=== PATIENT | female | born 1985 | race Two or more races ===

== ENCOUNTER → 2020-06-18 08:31 | Outpatient (BNVA) | payer OTHER, SELFPAY | PROVIDERS: PCP Internal Medicine; Visit Provider Physician Assistant ==

== ENCOUNTER → 2020-07-16 08:10 | Outpatient (BNVA) | payer OTHER, SELFPAY | PROVIDERS: PCP Internal Medicine; Visit Provider Dietitian, Registered ==

== ENCOUNTER → 2020-07-18 08:19 | Outpatient (BNVA) | payer OTHER, SELFPAY | PROVIDERS: PCP Internal Medicine; Visit Provider Dietitian, Registered ==

== ENCOUNTER → 2020-07-29 15:19 | Outpatient (BNVA) | payer OTHER, SELFPAY | PROVIDERS: PCP Internal Medicine; Visit Provider Surgery ==

== ENCOUNTER → 2020-08-15 13:51 | Outpatient (BNVA) | payer OTHER, SELFPAY | PROVIDERS: PCP Internal Medicine; Visit Provider Dietitian, Registered ==

== ENCOUNTER → 2020-08-27 15:50 | Outpatient (BNVA) | payer OTHER, SELFPAY | PROVIDERS: PCP Internal Medicine; Visit Provider Dietitian, Registered | DX: E66.01 Morbid (severe) obesity due to excess calories (principal) | CPT/HCPCS: 97803 ==

== ENCOUNTER 2020-09-05 14:03 | Outpatient (REF) | payer OTHER, SELFPAY ==
[2020-09-06 13:36] LABS: H Pylori Breath Test NOT DETECTED (NOT DETECTED)
== END 2020-09-05 14:04 | disposition home or self-care (01) ==
LOC: HO.LNP 14:03
PROVIDERS: PCP Internal Medicine; Visit Provider Surgery
DX: Z01.818 Encounter for other preprocedural examination (principal); E66.01 Morbid (severe) obesity due to excess calories; Z68.41 Body mass index [BMI] 40.0-44.9, adult; Z71.3 Dietary counseling and surveillance
CPT/HCPCS: 83013

== ENCOUNTER → 2020-09-27 14:13 | Outpatient (BNVA) | payer OTHER, SELFPAY | PROVIDERS: PCP Internal Medicine; Visit Provider Surgery ==

== ENCOUNTER → 2020-10-14 15:16 | Outpatient (BNVA) | payer OTHER, SELFPAY | PROVIDERS: PCP Internal Medicine; Visit Provider Surgery ==

== ENCOUNTER → 2020-11-15 14:13 | Outpatient (BNVA) | payer OTHER, SELFPAY | PROVIDERS: PCP Internal Medicine; Visit Provider Surgery ==

== ENCOUNTER → 2020-12-17 13:37 | Outpatient (BNVA) | payer OTHER, SELFPAY | PROVIDERS: PCP Internal Medicine; Visit Provider Surgery ==

== ENCOUNTER → 2020-12-20 13:43 | Outpatient (BNVA) | payer OTHER, SELFPAY | PROVIDERS: PCP Internal Medicine; Visit Provider Physician Assistant ==

== ENCOUNTER 2020-12-25 08:26 | Inpatient (IN) | payer OTHER, SELFPAY ==
--- NOTE | 2020-12-17 14:42 | ECG_ITS ---
Test Reason : SOB Blood Pressure : / mmHG Vent. Rate : 075 BPM Atrial Rate : 075 BPM P-R Int : 124 ms QRS Dur : 086 ms QT Int : 388 ms P-R-T Axes : -05 014 014 degrees QTc Int : 433 ms Normal sinus rhythm Normal ECG No previous ECGs available Referred By: Charisma Monsalve Electronically Signed By:EARNESTINE RECIO
[2020-12-17 15:16] LABS: MANUAL DIFF FLAG NO
[2020-12-17 15:18] LABS: Basophils Percent Auto 0.4 % (0-2); Eosinophils Absolute Auto 0.1 X10*3/uL (0.0-0.4); Eosinophils Percent Auto 0.5 % (0-4); Hematocrit 32.3 % (37-47); Hemoglobin 9.6 g/dl (12.0-16.0); Imm Gran Abs Auto 0.02 X10*3/uL (0.00-0.03); Imm Gran Pct Auto 0.2 % (0.0-0.4); Lymphocytes Absolute Auto 2.2 X10*3/uL (1.2-4.9); Lymphocytes Percent Auto 23.2 % (20-40); Mean Corpuscular HGB Conc 29.7 g/dl (31.0-35.0); Mean Corpuscular Hemoglobin 20.8 pg (27.0-33.0); Mean Corpuscular Volume 69.9 fL (80-98); Mean Platelet Volume 9.8 fL (9.4-12.3); Monocytes Absolute Auto 0.5 X10*3/uL (0.1-1.2); Monocytes Percent Auto 5.1 % (2-11); Neutrophils Absolute Auto 6.6 X10*3/uL (2.0-8.3); Neutrophils Percent Auto 70.6 % (45-73); Platelet Count 576 X10*3/uL (160-400); Red Blood Count 4.62 X10*6/uL (4.20-5.50); Red Cell Distribution Width 18.9 % (11.0-16.0); White Blood Count 9.3 X10*3/uL (4.8-10.8)
[2020-12-17 15:23] LABS: INTERNATIONAL NORM RATIO 1.1 (0.9-1.1); Prothrombin Time 12.3 SEC (9.9-13.0)
[2020-12-17 15:25] LABS: Partial Thromboplastin Time 35.5 SEC (24.1-38.0)
[2020-12-17 15:34] LABS: Glucose Urine UA NEG (NEG); Leukocyte Esterase Urine NEG (NEG); Nitrite Urine NEG (NEG); Urine Blood 2+ (NEG); Urine Ketones NEG (NEG); Urine Protein NEG (NEG-TRACE)
[2020-12-17 15:35] LABS: Appearance Urine CLEAR; Color Urine YELLOW
[2020-12-17 15:36] LABS: UPreg QC Valid YES; Urine Pregnancy NEGATIVE (NEGATIVE)
[2020-12-17 15:44] LABS: RBC Urine 30-49 /HPF (0); WBC Urine 0-2 /HPF (0-4)
[2020-12-17 15:45] LABS: Squamous Epithelial Cell Urine 1+ /LPF
[2020-12-17 15:59] LABS: Albumin Level 4.5 g/dL (3.5-5.0); Anion Gap 15 (12-20); Blood Urea Nitrogen 13 mg/dL (9-16); Calcium 9.4 mg/dL (8.4-10.2); Carbon Dioxide 23 mmol/L (22-29); Chloride 106 mmol/L (96-108); Estimated Glomerular Filt Rate > 60; Glucose Random 95 mg/dL (60-115); Potassium 4.6 mmol/L (3.3-5.1); Sodium 139 mmol/L (135-145)
[2020-12-18 12:39] VITALS: BMI 37.5
--- NOTE | 2020-12-24 09:34 | HO.ANESPROP2 ---
Documented by User: Keke Watson 12/24/20 09:35 HPI - Anesthesia Eval Consult details Narrative: 35yo F for Gastrectomy Sleeve,EGD,poss diaphragmatic hernia,poss ventral hernia,poss open PMFSH Active Problems Active Problems: All Active Problems (Updated 12/18/20 @ 12:44 by Melodie Mallory) Preoperative examination (Acute) Adjustment disorder, unspecified (Acute) BMI 39.0-39.9,adult (Acute) Obesity (Acute) BMI 37.0-37.9, adult (Acute) Shortness of breath (Acute) Morbid obesity (Acute) BMI 40.0-44.9, adult (Acute) Past Medical History Medical History Back pain BMI 40.0-44.9, adult COVID-19 vaccine administered Family history of reaction to anesthesia Morbid obesity MARY (obstructive sleep apnea) Family History Family History Mother Hypertension Prediabetes Father Heart attack Son Premature baby Daughter Epilepsy Sister No problems noted. Brother No problems noted. Surgical History Surgical History Hx of tubal ligation Social History Social History Household Members: Family Housing: House Are you a primary healthcare corporate account director to a significant other at home: No Do you presently have visiting nurse or other home services: No Alcohol intake: current Alcohol intake frequency: holidays/special occasions only Patient Tobacco Use Status: Never used Tobacco Use of substances other than those prescribed or required for medical reasons: No Have you been hit, kicked, punched, or otherwise hurt by someone within the past year? If so, by whom?: No Are you DNR?: No Advance Directives Information Provided: No Eating poorly because of decreased appetite: No Nutrition Risks: No Nutritional Risk Patient : No FDLMP: 12/16/20 : No Poor oral hygiene: No Meds Allergies Allergy/AdvReac Type Severity Reaction Status Date / Time No Known Allergies Allergy Verified 12/25/20 08:38 Home Medications Medication Instructions Recorded Confirmed Last Taken Type multivitamin 1 tab PO DAILY 12/18/20 12/18/20 Unknown History multivitamin 1 tab PO DAILY 12/18/20 12/18/20 Unknown History Exam Exam Date and Time: December 24, 2020 0934 Height,Weight and Vital Signs: Height 5 ft 6 in Weight 105.506 kg Pertinent Lab Results Pertinent Lab Results: Laboratory Tests 12/17/20 12/17/20 12/17/20 14:50 14:50 14:50 WBC 9.3 RBC 4.62 Hgb 9.6 L Hct 32.3 L MCV 69.9 L MCH 20.8 L MCHC 29.7 L RDW 18.9 H Plt Count 576 H MPV 9.8 Immature Gran % (Auto) 0.2 Neut % (Auto) 70.6 Lymph % (Auto) 23.2 [place] % (Auto) 5.1 Eos % (Auto) 0.5 Baso % (Auto) 0.4 Lymph # (Auto) 2.2 [place] # (Auto) 0.5 Eos # (Auto) 0.1 Baso # (Auto) 0.0 Abs Immat Gran (auto) 0.02 Absolute Neuts (auto) 6.6 Absolute Nucleated RBC 0.000 Nucleated RBC % (auto) 0.0 PT 12.3 INR 1.1 APTT 35.5 Sodium Potassium Chloride Carbon Dioxide Anion Gap BUN Creatinine Estim Creat Clear Calc Estimated GFR Random Glucose Calcium Albumin Urine Color YELLOW Urine Appearance CLEAR Urine pH 6.0 Ur Specific [place] 1.010 Urine Protein NEG Urine Glucose (UA) NEG Urine Ketones NEG Urine Blood 2+ H Urine Nitrite NEG Ur Leukocyte Esterase NEG Urine RBC 30-49 H Urine WBC 0-2 Ur Squamous Epith Cells 1+ Urine Bacteria NONE Urine Test Blood Type Antibody Screen 12/17/20 12/17/20 12/17/20 14:50 14:50 14:50 WBC RBC Hgb Hct MCV MCH MCHC RDW Plt Count MPV Immature Gran % (Auto) Neut % (Auto) Lymph % (Auto) [place] % (Auto) Eos % (Auto) Baso % (Auto) Lymph # (Auto) [place] # (Auto) Eos # (Auto) Baso # (Auto) Abs Immat Gran (auto) Absolute Neuts (auto) Absolute Nucleated RBC Nucleated RBC % (auto) PT INR APTT Sodium 139 Potassium 4.6 Chloride 106 Carbon Dioxide 23 Anion Gap 15 BUN 13 Creatinine 0.79 Estim Creat Clear Calc TNP Estimated GFR > 60 Random Glucose 95 Calcium 9.4 Albumin 4.5 Urine Color Urine Appearance Urine pH Ur Specific [place] Urine Protein Urine Glucose (UA) Urine Ketones Urine Blood Urine Nitrite Ur Leukocyte Esterase Urine RBC Urine WBC Ur Squamous Epith Cells Urine Bacteria Urine Test NEGATIVE Blood Type A Positive Antibody Screen NEGATIVE Narrative Narrative: EKG 11/2020 Vent. Rate : 075 BPM ? ? Atrial Rate : 075 BPM ?? P-R Int : 124 ms? QRS Dur : 086 ms ? ? QT Int : 388 ms ? ? ? P-R-T Axes : -05 014 014 degrees ?? QTc Int : 433 ms ? Normal sinus rhythm Normal ECG No previous ECGs available Assessment and Plan Assessment Anesthesia Assessment: Chart Reviewed Documented by User: Davina Torres 12/25/20 10:56 [facility] Past Medical History Medical History Back pain BMI 40.0-44.9, adult COVID-19 vaccine administered Family history of reaction to anesthesia Morbid obesity MARY (obstructive sleep apnea) Family History Family History Mother Hypertension Prediabetes Father Heart attack Son Premature baby Daughter Epilepsy Sister No problems noted. Brother No problems noted. Family history of problems with anesthesia: No Surgical History Surgical History Hx of tubal ligation History of Problems with Anesthesia: No Social History Social History Household Members: Family Housing: House Are you a primary healthcare corporate account director to a significant other at home: No Do you presently have visiting nurse or other home services: No Alcohol intake: current Alcohol intake frequency: holidays/special occasions only Patient Tobacco Use Status: Never used Tobacco Use of substances other than those prescribed or required for medical reasons: No Have you been hit, kicked, punched, or otherwise hurt by someone within the past year? If so, by whom?: No Are you DNR?: No Advance Directives Information Provided: No Eating poorly because of decreased appetite: No Nutrition Risks: No Nutritional Risk Patient : No FDLMP: 12/16/20 : No Poor oral hygiene: No Meds Allergies Allergy/AdvReac Type Severity Reaction Status Date / Time No Known Allergies Allergy Verified 12/25/20 08:38 Home Medications Medication Instructions Recorded Confirmed Last Taken Type multivitamin 1 tab PO DAILY 12/18/20 12/18/20 Unknown History multivitamin 1 tab PO DAILY 12/18/20 12/18/20 Unknown History Exam Height,Weight and Vital Signs: Height 5 ft 6 in Weight 105.506 kg Vital Signs Temp Pulse Resp BP Pulse Ox 12/25/20 08:54 97.1 F 78 18 119/71 98 Pertinent Lab Results Pertinent Lab Results: Lab Results 12/17/20 12/17/20 12/17/20 Range/Units 14:50 14:50 14:50 WBC 9.3 (4.8-10.8) X10*3/uL RBC 4.62 (4.20-5.50) X10*6/uL Hgb 9.6 L (12.0-16.0) g/dl Hct 32.3 L (37-47) % MCV 69.9 L (80-98) fL MCH 20.8 L (27.0-33.0) pg MCHC 29.7 L (31.0-35.0) g/dl RDW 18.9 H (11.0-16.0) % Plt Count 576 H (160-400) X10*3/uL MPV 9.8 (9.4-12.3) fL Immature Gran % (Auto) 0.2 (0.0-0.4) % Neut % (Auto) 70.6 (45-73) % Lymph % (Auto) 23.2 (20-40) % [place] % (Auto) 5.1 (2-11) % Eos % (Auto) 0.5 (0-4) % Baso % (Auto) 0.4 (0-2) % Lymph # (Auto) 2.2 (1.2-4.9) X10*3/uL [place] # (Auto) 0.5 (0.1-1.2) X10*3/uL Eos # (Auto) 0.1 (0.0-0.4) X10*3/uL Baso # (Auto) 0.0 (0.0-0.2) X10*3/uL Abs Immat Gran (auto) 0.02 (0.00-0.03) X10*3/uL Absolute Neuts (auto) 6.6 (2.0-8.3) X10*3/uL Absolute Nucleated RBC 0.000 (0.0-0.012) X10*3/uL Nucleated RBC % (auto) 0.0 (0.0-0.2) /100WBC PT 12.3 (9.9-13.0) SEC INR 1.1 (0.9-1.1) APTT 35.5 (24.1-38.0) SEC Sodium 139 (135-145) mmol/L Potassium 4.6 (3.3-5.1) mmol/L Chloride 106 (96-108) mmol/L Carbon Dioxide 23 (22-29) mmol/L Anion Gap 15 (12-20) BUN 13 (9-16) mg/dL Creatinine 0.79 (0.5-1.4) mg/dL Estim Creat Clear Calc TNP Estimated GFR >60 Random Glucose 95 (60-115) mg/dL Calcium 9.4 (8.4-10.2) mg/dL Albumin 4.5 (3.5-5.0) g/dL Urine Color YELLOW Urine Appearance CLEAR Urine pH 6.0 (5.0-8.0) Ur Specific [place] 1.010 (1.005-1.025) Urine Protein NEG (NEG-TRACE) MG/DL Urine Glucose (UA) NEG (NEG) MG/DL Urine Ketones NEG (NEG) MG/DL Urine Blood 2+ H (NEG) Urine Nitrite NEG (NEG) Ur Leukocyte Esterase NEG (NEG) Urine RBC 30-49 H (0) /HPF Urine WBC 0-2 (0-4) /HPF Ur Squamous Epith Cells 1+ /LPF Urine Bacteria NONE /LPF Urine Test NEGATIVE (NEGATIVE) COVID-19 (YAMINI) (Negative) COVID-19 Clin Com Blood Type A Positive Antibody Screen NEGATIVE Laboratory Results - last 24 hr 12/25/20 12/25/20 08:35 08:55 COVID-19 (YAMINI) Negative COVID-19 Clin Com See Note Blood Type A Positive Antibody Screen NEGATIVE Airway Mallampati Class: II TM Dist: >3cm Neck ROM: Full Loose/Missing/Broken Teeth: No Heart: RRR Lungs: CTAB Assessment and Plan Final Anesthetic Review Family History of Problems with Anesthesia: No History of Problems with Anesthesia: No NPO: Yes ASA Class: III Final Preanesthetic Review: No Changes in Pt Med Stat, Meds/Allgs Chart Reviewed, Consent Obtained/Reviewed and Anes Risks/Benef Reviewed Patient Risk: Intermediate Procedure Risk: Intermediate Assessment/Block/Sedation in SS: Assess/Block/Sedation-SS Anesthetic Plan Anesthetic Plan: GA Disposition: Standard PACU and Inp. Admit - Standard Bed
--- NOTE | 2020-12-24 16:37 | MHC.SHP ---
Pre-Procedural Eval Section A Date of Service: 12/24/20 Section B Chief Complaint: obesity Allergies: Allergies Allergy/AdvReac Type Severity Reaction Status Date / Time No Known Allergies Allergy Verified 12/17/20 14:09 Plan I have reviewed the history and physical and performed a pertinent physical examination on my patient. No changes have occurred unless specified.
[2020-12-25] VITALS (11 sets, daily range): BP systolic 119–162; BP diastolic 69–85; PULSE 69–93; RESP 16–18; TEMP 35.9–36.6; O2SAT 95–100
[2020-12-25] MEDS: Lactated Ringers 1,000 ML 100 ML IVCONT (09:09)
[2020-12-25 09:14] LABS: COVID-19 Test Negative (Negative); IDNOW Serial# 9DD0AD1C
--- NOTE | 2020-12-25 11:54 | PM.OP ---
Brief Operative Note Date of Service: 12/25/20 Pre-op diagnosis: Class 2 obesity, BMI 37.5, obstructive sleep apnea Post-op diagnosis: other Procedure: Same and hiatal hernia Implants: None Surgeon: Charisma Monsalve MD Anesthesia: GETA Was an Monument Carver used for this Procedure?: Yes Monument Carver: Kori Donahue Estimated blood loss (mL): 5 Pathology: other (Partial gastrectomy) Condition: stable Disposition: PACU
--- NOTE | 2020-12-25 11:55 | P.OP_ITS ---
Operative Note Operative Note Date of Service: 12/25/20 Narrative: Patient was brought into the operating room and placed on the operating room table in the supine position. General anesthesia was induced. Normal DVT prophylaxis was instituted and the patient received 2 grams of cefotetan preoperatively. The abdomen was then prepped and draped in the normal sterile fashion. A safety time-out was performed. A mixture of 1% lidocaine with epinephrine and ?% Marcaine plain was used to an esthetize the planned incision site in the left upper quadrant. A #11 scalpel was used to make a 5 mm left upper quadrant transverse incision through which a veress needle was placed. Three pops were heard going through the fascia. A saline drop test was used to confirm that the veress needle was intraabdominal. An optiview technique was then used to place a 5mm port in the left upper quadrant. A 5 mm 30 degree laproscope was then placed through this port and the abdominal cavity was surveyed and was normal. The patient was placed in reverse Trendelenburg positioning. A lakia liver retractor was then placed in the subxyphoid position and it was used to hold up the left lobe of the liver to the abdominal wall. This was secured to the bed using the liver retractor gardiner. A BRENNEN block was then performed for pain control on the right side of the abdomen. A 5 mm port was placed in the right upper quadrant near the falciform ligament. A 12 mm port was then placed in the mid epigastrium. One additional 5 mm port was placed in the left upper quadrant just to the left of the placement of the first port. I then performed a BRENNEN block on the left side of the abdomen. I then removed the epigastric fat pad; there was a small anterior hiatal hernia noted. I reapproximated the left and right crura with a total of 2 stitches of 2-0 ethibond and a laparoscopic knot pusher. There was no residual hiatal hernia. I then opened up the angle of His. We then gained entry into the lesser sac about 4-5 cm from the pylorus. I had anesthesia place a 34 [place] orogastric tube into the distal antrum to use as a sizing tool for gastric pouch size. I divided the short gastric vessels up to the angle of His. We then started the creation of the gastric pouch by firing a 60 mm purple load endostapler up the stomach about 4-5 cm from the pylorus. We completed the creation of the gastric pouch using a total of 4 firings of a 60 mm purple load stapler. We had anesthesia remove the orogastric tube, then we clamped across the distal antrum using a fired 60 mm endostapler. We flattened the patient and then instilled normal saline surrounding the newly created staple line. I then performed an on-table endoscopy. I passed the gastroscopy into the posterior oropharynx and down the esophagus evaluating the esophageal mucosa which was normal. There was no evidence of hiatal hernia. I passed the gastroscope into the gastric pouch and insufflated the gastric pouch. There was healthy pink mucosa and no evidence of active bleeding. There was no evidence of leak on laparoscopy. I desufflated the gastric pouch and removed the endoscope. I removed the endostapler from the abdomen and suctioned the fluid from the left upper quadrant. I then removed the partial gastrectomy specimen through the epigastric 12 mm port site. I reapproximated the 12 mm port using a 0 maxon suture with a laparoscopic suture passer. I instilled local anesthetic into the fascial closure site and tied the suture down at a pressure of 8-10 mm of Hg. There was no residual fascial defect. We removed the liver retractor and the left upper quadrant 5 mm ports under direct visualization. There was no evidence of any active bleeding. I desufflated the abdomen through the last remaining port and removed the laparoscope and 5 mm port. We reapproximated all incisions with a 4-0 monocryl subcuticular stitch. We cleaned and dried the abdominal skin and applied dermabond skin glue. All count were correct at the end of the case. The patient was awake and in stable condition prior to extubation and transfer to the recovery room.
--- NOTE | 2020-12-25 12:07 | PM.PNGS ---
Subjective Subjective Date of Service: 12/26/20 Interval history: Pod #1 s/p LSG and HH repair. Doing well. Tolerating stage 3 diet, ambulating in hallway. Pain well controlled. Denies nausea or vomiting. Vitals and labs reviewed and are within limit for post op day 1. On exam, patient is well appearing, abdomen is soft, nd, mild appropriate incisional tenderness. Incisions c/d/i with dermabond in place. Plan: d/c home today. Follow up with me in 2 weeks. Physical Exam Vital Signs: Vital Signs: Last Vital Signs Temp 97.0 F 12/25/20 12:04 Pulse 80 12/25/20 12:04 Resp 16 12/25/20 12:04 BP 149/84 H 12/25/20 12:04 Pulse Ox 98 12/25/20 12:04 Body Mass Index 37.5 Const: General: cooperative, comfortable, no acute distress, alert and awake Nutritional Appearance: obese GI: Inspection: Yes normal to inspection, No distended and Yes incision (clean, dry, intact, dermabond in place) Palpation (GI): Soft to palpation and Tenderness to palpation present (GI) (mild appropriate incisional tenderness) Extrem: Right lower extremity: lower leg Details: Negative for no tenderness; No no edema Left lower extremity: lower leg Details: Negative for no tenderness; No no edema Progress Note: A&P Assessment and plan (1) Morbid obesity: Status: Acute (2) Hiatal hernia: Status: Acute (3) History of repair of hiatal hernia: Status: Acute (4) S/P laparoscopic sleeve gastrectomy: Status: Acute Fall Risk Details Current Medications: Current Medications Generic Name Dose Route Start Last Admin Trade Name Freq PRN Reason Stop Dose Admin Famotidine 20 mg 12/25/20 21:00 Famotidine/Pf 20 Mg/2 Ml Vial IVPUSH BID MALCOM Hydromorphone HCl 0.25 mg 12/25/20 12:02 Hydromorphone Hcl 0.5 Mg/0.5 Ml Syringe IVPUSH Q4H PRN Pain, Severe (Pain Scale 7-10) Lactated Ringer's 1,000 mls @ 100 mls/hr 12/25/20 08:30 12/25/20 09:09 Lr IVCONT 100 mls/hr .Q10H MALCOM Administration Lactated Ringer's 1,000 mls @ 125 mls/hr 12/25/20 12:15 Lr IVCONT .Q8H MALCOM Cefotetan Disodium 2 gm/ 50 mls @ 100 mls/hr 12/25/20 12:02 Sodium Chloride IV 12/25/20 12:31 POSTOP ONE Acetaminophen 1,000 mg in 100 mls @ 16.7 mls/hr 12/25/20 12:15 Ofirmev IV .Q6H MALCOM Metoclopramide HCl 10 mg 12/25/20 12:02 Metoclopramide Hcl 10 Mg/2 Ml Vial IVPUSH Q6H PRN Nausea Ondansetron HCl 4 mg 12/25/20 12:15 Ondansetron Hcl 4 Mg/2 Ml Vial IVPUSH Q8H MALCOM Pantoprazole Sodium 40 mg 12/25/20 21:00 Pantoprazole Sodium 40 Mg/10 Ml Vial IVPUSH BID MALCOM Sodium Chloride 3 ml 12/25/20 16:00 0.9 % Sodium Chloride Flush 3 Ml Syringe IVFLUSH QSHIFT MALCOM Time Spent With Patient Time: Total time spent is greater than 50% in coordination of care (as documented) at patient's floor/unit and/or counseling patient:
--- NOTE | 2020-12-25 12:08 | P.DS_ITS ---
DS: Providers Provider Date of Service: 12/26/20 Date of admission: 12/25/20 08:26 Primary care physician: Angela Feliz MD DS: Diagnosis Discharge Diagnosis (1) Morbid obesity: Status: Acute (2) Hiatal hernia: Status: Acute (3) History of repair of hiatal hernia: Status: Acute (4) S/P laparoscopic sleeve gastrectomy: Status: Acute DS: Medications Discharge Medications Home Medications: Home Medications Medication Instructions Recorded Confirmed multivitamin 1 tab PO DAILY 12/18/20 12/18/20 multivitamin 1 tab PO DAILY 12/18/20 12/18/20 Previous Rx's Medication Instructions Recorded acetaminophen 500 mg tablet 1,000 mg PO Q6H PRN #30 tab 12/17/20 (Tylenol Extra Strength) docusate sodium 100 mg capsule 100 mg PO BID #30 cap 12/17/20 (Colace) famotidine 20 mg tablet (Pepcid AC) 20 mg PO DAILY #30 tab 12/17/20 ondansetron HCl 4 mg tablet 4 mg PO Q6H PRN #30 tab 12/17/20 (Zofran) simethicone 80 mg chewable tablet 80 mg PO TID-QID PRN #30 tab 12/17/20 (Gas Relief (simethicone)) DS: Summary Time Spent with Patient Time attestation: Total time spent providing and/or coordinating discharge services: Discharge coordination time: Greater than 30 minutes Quality: Stroke Does the patient have a stroke diagnosis?: No Physical Exam Vital Signs: Vital Signs: Last Vital Signs Temp 97.0 F 12/25/20 12:04 Pulse 80 12/25/20 12:04 Resp 16 12/25/20 12:04 BP 149/84 H 12/25/20 12:04 Pulse Ox 98 12/25/20 12:04 Body Mass Index 37.5 DS: Data Data Completed and Pending Pending studies at discharge: Pending at discharge 12/25/20 11:38 Surgical [PTH] Routine Labs on day of discharge: Laboratory Results - last 24 hr 12/25/20 12/25/20 08:35 08:55 COVID-19 ([facility]INI) Negative COVID-19 Clin Com See Note Blood Type A Positive Antibody Screen NEGATIVE Discharge Plan Discharge Patient Disposition: Home, Self-Care Discharge Diagnosis: obesity s/p LSG and HH repair Referrals: Angela Feliz MD [Primary Care Provider] - 1 Week Discharge Medications: Continued multivitamin Tablet 1 tab PO DAILY RF: 0 multivitamin Tablet 1 tab PO DAILY RF: 0 acetaminophen [Tylenol Extra Strength] 500 mg tablet 1,000 mg PO Q6H PRN (Reason: pain) Qty: 30 RF: 1 famotidine [Pepcid AC] 20 mg tablet 20 mg PO DAILY Qty: 30 RF: 1 simethicone [Gas Relief (simethicone)] 80 mg tablet,chewable 80 mg PO TID-QID PRN (Reason: abdominal distention) Qty: 30 RF: 1 ondansetron HCl [Zofran] 4 mg tablet 4 mg PO Q6H PRN (Reason: nausea and vomiting) Qty: 30 RF: 1 docusate sodium [Colace] 100 mg capsule 100 mg PO BID Qty: 30 RF: 1 Discharge Orders: Discharge Order (Routine); Ordered 12/26/20 Ordered By: Charisma Monsalve Diet: other Activity on Discharge: No heavy lifting Stand Alone Forms: Patient Portal Discharge page Activity Restrictions/Additional Instructions: Discharge Instructions 1. Please call your doctor or come back to the emergency room should any new symptoms arise. 2. You will receive a courtesy call from [facility] 24-48 hours after discharge. 3. Activity: abstain from alcohol, practice limited stair climbing, no bending, no driving, no exercise, no illicit substances, no lifting, no sex, no tub bath, no work. 4. Diet: continue stage 3 protein shakes until your [address] Monsalve. 5. Dressing Change/Wound Care: Your incision is covered by surgical glue. If the area is tender, you may apply an ice pack for short intervals (no more than 20 minutes on, followed by at least 20 minutes off). Do not apply heat. Do not use creams, lotions, or topical antibiotics unless instructed to do so by your surgeon. These can cause infection or allergic reaction. 6. Call your doctor if: - Your temperature exceeds 101.5 F - You experience excessive pain or swelling - You have an unexpected reaction to medication - You have excessive bleeding - You experience continued vomiting/nausea - Your incision begins to separate - Your incision shows signs of infection such as increased redness, swelling, excessive pain, heat, or drainage (light blood or clear fluid is normal) 7. General instructions: - No lifting greater than 5 lbs for the next 4 weeks. - No driving within 24 hours of taking narcotic pain medications. - If you do not move your bowels in the next 2 days, please take milk of magnesia over the counter. Please follow the post op diet and do not advance your diet until you are seen in the office in about 2 weeks. - Please walk around your home every hour or two to prevent blood clots from forming in your legs. You do not need to wake from sleeping to walk. - Please sleep in a bed or couch to prevent kinking at the hips and knees. - Please take your incentive spirometer (your lung solar panel technician) home with you and use it for the next few days to prevent pneumonias. - You may shower, no hot tubs, baths or swimming pools. - Please call the office with any questions or concerns such as increasing abdominal pain, fever, chills, shortness of breath, chest pain, leg pain or swelling, or redness or drainage from your incisions. - Please stay on stage 3 diet which includes sugar free clear liquids such as ice pops and jello and broth and crystal light. Avoid all carbonation. Please drink 3 protein shakes with at least 25-30 grams of protein daily or 3 of the Celebrate 4:1 shakes which can be purchased in our office. The Celebrate shakes have all of the bariatric vitamins you need if you consume these shakes. If you are drinking other protein shakes, you will need to purchase the Celebrate multivitamins and calcium that we provide in the office (they will provide all the vitamins you need). Please make sure you are consuming at least 40-60 ounces of water in addition to your 3 protein shakes daily. 8. Do not hesitate to contact the office with any questions at . The patient's medical history has been reviewed and they are considered low risk for post op DVT and therefore DVT prophylaxis is not considered necessary. Travel after surgery was reviewed. The patient has not disclosed any travel plans during the first 30 days after surgery and they have been advised that within the first 30 days after surgery any bus, plane, train or car travel over 2 hours in duration is contraindicated due to the possibility of developing blood clots from immobility. Any travel, needs to include periods of ambulation of 10 minutes in duration every 2 hours. The patient was instructed to discuss any plans for travel during this period with their bariatric surgeon. Discharge Summary Date of Service: 12/26/20 Pre-op diagnosis: Class 2 obesity, BMI 37.5, obstructive sleep apnea Post-op diagnosis: other Procedure: Same and hiatal hernia Discharge Medications: 1. Simethicone 80mg tablet chewable (Si tablet every 6 hours orally for 7 days, #28, 1 RF) q4h prn gas 2. Acetaminophen 500 mg tablet (Si tablets as needed every 6 hours orally for 30 days, #240, 0 RF) 3. Ondansetron 4 mg tablet disintegrating (Si tablet every 6 hours orally for 7 days, #28, 1 RF) 4. Colace 100 mg capsule (Si capsule twice a day for 30 days, #60, 2 RF) 5. Pepcid 20 mg chewable tablet (Si tablet twice a day for 30 days, #60, 3 RF) Discharge Instructions: The patient should continue on the stage III bariatric diet, which includes 3 protein shakes of at least 20-30g of protein on a daily basis. The patient was encouraged to avoid drinking liquids with her protein shakes. They should wait 30-45 minutes in between her meals and drinking water. She should drink at least 40-60 ounces of water on a daily basis. They should ambulate while at home to avoid any blood clots in her lower extremities. They should call with any questions or concerns such as increase in abdominal pain, persistent nausea, vomiting, redness and drainage from her incisions, fever, chills, shortness of breast, or chest pain beyond what is normal for her. The patient should avoid all heavy lifting greater than 5 pounds for the next 4 weeks. The patient is already scheduled to follow up with me in 2 weeks time, but should call the office with any questions prior to that follow up appointment. The patient should not advance their diet until they are seen in the office for the 2 week appointment. Hospital Course: The patient was admitted after undergoing a LSG and HH repair. They were started on stage II (1 oz of fluid every 15 minutes) on POD #0. The next morning they were evaluated and started on stage III diet (protein shakes). All labs were within normal limits. On post-operative day #1 she was feeling better, nausea and epigastric pain improved and they were tolerating stage III bariatric diet well. The patient was discharged home. Discharge Disposition: Home. Care Plan Goals: weight loss Health Concerns: obesity Plan of Treatment: LSG Assessment: stable POD #1 Discharge Date/Time: 12/26/20 10:06
[2020-12-25] MEDS: HYDROmorphone HCl 0.5 MG/0.5 ML SYRINGE 0.25 MG IVPUSH ×2 (15:18→20:22)
[2020-12-25] MEDS: Metoclopramide HCl 10 MG/2 ML VIAL IVPUSH (15:24)
--- NOTE | 2020-12-25 15:58 | MHC.CM.PN ---
CM MET WITH PTS AND SISTER WHO WERE AT BEDSIDE WHILE PT WAS SLEEPING. PT LIVES WITH HER AND IS INDEPENDENT AT BASELINE. PT HAS NO DME AND NO SERVICES. PTS CONFIRMS HER PCP IS ROBERTO CARNEY. HE IS UNSURE IF SHE HAS EVER SIGNED A HCP BUT IS AWARE CM CAN ASSIST IF SHE WOULD LIKE TO COMPLETE ONE. CURRENT DC PLAN IS HOME WITH NO SERVICES FAMILY WILL TRANSPORT
[2020-12-25] MEDS: Lactated Ringers 1,000 ML 125 ML IVCONT (20:22)
[2020-12-25] MEDS: Famotidine/PF 20 MG/2 ML VIAL IVPUSH (20:22)
[2020-12-25] MEDS: 0.9 % Sodium Chloride Flush 3 ML SYRINGE IVFLUSH (20:23)
[2020-12-25] MEDS: cefoTEtan disodium 2 GM in 0.9 % Sodium Chloride 50 ML IV (22:17)
[2020-12-26] MEDS: HYDROmorphone HCl 0.5 MG/0.5 ML SYRINGE 0.25 MG IVPUSH (02:25)
[2020-12-26] MEDS: Metoclopramide HCl 10 MG/2 ML VIAL IVPUSH (02:26)
[2020-12-26 03:48] VITALS: BP 158/72; PULSE 69; RESP 16; TEMP 36.3; O2SAT 96
[2020-12-26] MEDS: Lactated Ringers 1,000 ML 125 ML IVCONT (04:33)
[2020-12-26 06:05] LABS: MANUAL DIFF FLAG NO
[2020-12-26 06:11] LABS: Basophils Percent Auto 0.1 % (0-2); Hematocrit 29.2 % (37-47); Hemoglobin 8.7 g/dl (12.0-16.0); Imm Gran Abs Auto 0.03 X10*3/uL (0.00-0.03); Imm Gran Pct Auto 0.3 % (0.0-0.4); Lymphocytes Absolute Auto 1.6 X10*3/uL (1.2-4.9); Mean Corpuscular HGB Conc 29.8 g/dl (31.0-35.0); Mean Corpuscular Hemoglobin 20.9 pg (27.0-33.0); Mean Platelet Volume 9.7 fL (9.4-12.3); Monocytes Absolute Auto 0.6 X10*3/uL (0.1-1.2); Monocytes Percent Auto 5.7 % (2-11); Neutrophils Absolute Auto 9.1 X10*3/uL (2.0-8.3); Neutrophils Percent Auto 79.9 % (45-73); Platelet Count 557 X10*3/uL (160-400); Red Blood Count 4.17 X10*6/uL (4.20-5.50); Red Cell Distribution Width 18.5 % (11.0-16.0); White Blood Count 11.3 X10*3/uL (4.8-10.8)
[2020-12-26 06:31] LABS: Anion Gap 13 (12-20); Blood Urea Nitrogen 8 mg/dL (9-16); Carbon Dioxide 25 mmol/L (22-29); Chloride 102 mmol/L (96-108); Creatinine Clr Calc Pharmacy 118.2; Estimated Glomerular Filt Rate > 60; Glucose Random 111 mg/dL (60-115); Potassium 4.8 mmol/L (3.3-5.1); Sodium 135 mmol/L (135-145)
[2020-12-26] MEDS: Famotidine/PF 20 MG/2 ML VIAL IVPUSH (07:09)
[2020-12-26 08:00] VITALS: BP 167/87; PULSE 71; RESP 17; TEMP 37.1; O2SAT 98
--- NOTE | 2020-12-26 09:39 | PM.PNGS ---
Subjective Subjective Date of Service: 12/26/20 Interval history: Pod #1 s/p lap sleeve gastrectomy and hiatal hernia repair.?? Doing well.? Tolerating stage 3 diet, ambulating in hallway.? Pain well controlled.? Denies nausea or vomiting.? Vitals and labs reviewed and are within limit for post op day 1.? On exam, patient is well appearing, abdomen is soft, nd, mild appropriate incisional tenderness.? Incisions c/d/I with dermabond in place.? Plan: d/c home today.? Follow up with me in 2 weeks Physical Exam Vital Signs: Vital Signs: Last Vital Signs Temp 98.7 F 12/26/20 08:00 Pulse 71 12/26/20 08:00 Resp 17 12/26/20 08:00 BP 167/87 H 12/26/20 08:00 Pulse Ox 98 12/26/20 08:00 Body Mass Index 37.5 Const: General: cooperative, healthy appearing, comfortable and no acute distress GI: Other: Soft nondistended mild appropriate incisional tenderness. Incisions are clean dry intact with Dermabond in place. There is no erythema or drainage. Extrem: Other: Warm and well perfused throughout without edema or tenderness to palpation. Procedures Date of Service Date of Service: 12/26/20 Progress Note: A&P Assessment and plan (1) S/P laparoscopic sleeve gastrectomy: Status: Acute Assessment and Plan: This is a 35-year-old lady on postoperative day 1. Status post laparoscopic sleeve gastrectomy and hiatal hernia repair doing well. Patient is tolerating stage III diet and will be discharged home today to follow up with me again in 2 weeks time frame. (2) History of repair of hiatal hernia: Status: Acute Fall Risk Details Current Medications: Current Medications Generic Name Dose Route Start Last Admin Trade Name Freq PRN Reason Stop Dose Admin Famotidine 20 mg 12/25/20 21:00 12/26/20 07:09 Famotidine/Pf 20 Mg/2 Ml Vial IVPUSH 20 mg BID MALCOM Administration Hydromorphone HCl 0.25 mg 12/25/20 12:02 12/26/20 02:25 Hydromorphone Hcl 0.5 Mg/0.5 Ml Syringe IVPUSH 0.25 mg Q4H PRN Administration Pain, Severe (Pain Scale 7-10) Acetaminophen 1,000 mg in 100 mls @ 16.7 mls/hr 12/25/20 12:15 12/26/20 04:33 Ofirmev IV 16.7 mls/hr .Q6H MALCOM Administration Metoclopramide HCl 10 mg 12/25/20 12:02 12/26/20 02:26 Metoclopramide Hcl 10 Mg/2 Ml Vial IVPUSH 10 mg Q6H PRN Administration Nausea Ondansetron HCl 4 mg 12/25/20 12:15 12/26/20 04:33 Ondansetron Hcl 4 Mg/2 Ml Vial IVPUSH 4 mg Q8H MALCOM Administration Sodium Chloride 3 ml 12/25/20 16:00 12/26/20 07:09 0.9 % Sodium Chloride Flush 3 Ml Syringe IVFLUSH Not Given QSHIFT MALCOM Time Spent With Patient Time: Total time spent is greater than 50% in coordination of care (as documented) at patient's floor/unit and/or counseling patient: Time with patient: less than 15 minutes Quality Stroke Does the patient have a stroke diagnosis?: No VTE Prior VTE?: No VTE Risk Level:: Surgical - moderate VTE Device Contraindication: N/A - Device Ordered VTE Drug Contraindication: Treatment Not Indicated
--- NOTE | 2020-12-26 15:51 | HO.POSTANES ---
Post Anesthesia Evaluation Post Anesthesia Evaluation Vital Signs: Vital Signs Temp Pulse Resp BP Pulse Ox 12/26/20 08:00 98.7 F 71 17 167/87 H 98 Anesthesia: General Endotracheal-GETA Mental Status: Awake Pain Control: Satisfactory Nausea/Vomiting: None Hydration: Adequate Anesthesia-Related Issues: No Anes. Related Issues
== END 2020-12-26 10:06 | disposition home or self-care (01) | DRG 621 ==
LOC: HO.SSSA 12:10 → HO.S3 12:30
PROVIDERS: Physician Assistant; Admitting Provider Surgery; PCP Internal Medicine; Visit Provider Surgery
PROC: 0DB64Z3 Excision of Stomach, Percutaneous Endoscopic Approach, Vertical (ICD-10-PCS; CPT 43845; principal; 2020-12-25 09:50)
DX: E66.01 Morbid (severe) obesity due to excess calories (principal); G47.33 Obstructive sleep apnea (adult) (pediatric); K44.9 Diaphragmatic hernia without obstruction or gangrene; Z68.37 Body mass index [BMI] 37.0-37.9, adult; Z20.822 Contact with and (suspected) exposure to COVID-19; Z79.899 Other long term (current) drug therapy
CPT/HCPCS: 36415; 80048; 81001; 81025; 82040; 85025; 85610; 85730; 86850; 86900; 86901; 87635; 88307; 88342; 93005; 99024; C1776; J0131; J1100; J1170; J2250; J2370; J2405; J2765; J3010

== ENCOUNTER → 2021-01-06 15:37 | Outpatient (BNVA) | payer OTHER, SELFPAY | PROVIDERS: PCP Internal Medicine; Visit Provider Surgery ==

== ENCOUNTER → 2021-02-06 10:43 | Outpatient (BNVA) | payer OTHER, SELFPAY | PROVIDERS: PCP Internal Medicine; Visit Provider Surgery ==

== ENCOUNTER 2021-02-27 09:42 | Outpatient (REF) | payer OTHER, SELFPAY ==
[2021-02-27 12:24] LABS: Hematocrit 27.2 % (37-47); Hemoglobin 8.3 g/dl (12.0-16.0); Mean Corpuscular HGB Conc 30.5 g/dl (31.0-35.0); Mean Corpuscular Volume 68.7 fL (80-98); Platelet Count 506 X10*3/uL (160-400); Red Blood Count 3.96 X10*6/uL (4.20-5.50); Red Cell Distribution Width 19.5 % (11.0-16.0); White Blood Count 7.3 X10*3/uL (4.8-10.8)
[2021-02-27 12:27] LABS: Anion Gap 11 (12-20); Blood Urea Nitrogen 10 mg/dL (9-16); Calcium 9.3 mg/dL (8.4-10.2); Carbon Dioxide 25 mmol/L (22-29); Chloride 106 mmol/L (96-108); Estimated Glomerular Filt Rate > 60; Glucose Random 91 mg/dL (60-115); Iron 15 mcg/dL (30-160); Percent Iron Saturation 3 % (15-50); Potassium 4.5 mmol/L (3.3-5.1); Sodium 137 mmol/L (135-145); Total Iron Binding Capacity 431 mcg/dL (228-428); Unsaturated Iron Binding 416 ug/dL
== END 2021-02-27 09:43 | disposition home or self-care (01) ==
LOC: HO.LAB 09:42
PROVIDERS: Absent Provider Physician Assistant Surgical; PCP Internal Medicine; Visit Provider Dietitian, Registered
DX: E66.9 Obesity, unspecified (principal); Z68.33 Body mass index [BMI] 33.0-33.9, adult; D64.9 Anemia, unspecified
CPT/HCPCS: 36415; 80048; 83540; 85027; 97803

== ENCOUNTER → 2021-07-24 07:42 | Outpatient (BNVA) | payer OTHER, SELFPAY | PROVIDERS: PCP Internal Medicine; Visit Provider Dietitian, Registered ==